=== PATIENT | female | born 1925 | race Caucasian/White ===

== ENCOUNTER 2016-08-17 01:34 | Inpatient (IN) | payer OTHER ==
[~2016-08-17] VITALS: Ht 165.1 cm; Wt 54.4 kg
--- NOTE | ~2016-08-17 | EKG ---
[address] [address] ELECTROCARDIOGRAM REPORT Name: TIP HARDIN Room #: 403-P ADM IN M.R.#: [id number] Admission: 08/17/16 Attend Phys: David Alexandre MD Discharge: Date of : [birth year] Report #: [id number] THIS REPORT FOR: //name// [facility] ED Test Date: 2016-08-17 Test Time: 01:52:09 Pat Name: TIP HARDIN Department: Room: 403 Gender: F [employer]: ZAINAB : 1925 Requested By: Roman Gilbert Order Number: [id number] MD: Mervin Aviles Measurements Intervals [place] Rate: 105 P: 28 CO: 179 QRS: 32 QRSD: 84 T: 55 QT: 321 QTc: 425 Interpretive Statements Sinus tachycardia Ventricular premature complex Electronically Signed On 08-17-2016 9:43:45 CDT by Mervin Aviles [email or web address] <ELECTRONICALLY SIGNED> By: Mervin Aviles MD 08/17/16 0943 [id number] MD CARLIE Alanis
[~2016-08-17 01:34] MED LIST: ADVAIR 100-501 EACH; ALENDRONATE SOD70 MG PO; ALLEGRA30 MG; ALLOPURINOL 10100 M1 PO; BETIMOL10 ML; CIPRO500 M1 PO; ENALAPRIL MALEA20 MG PO; FLEXERIL PO; HYDROCODON-ACE1 EA12 PO; HYDROCODONE-AP1 EA11 PO; K-DUR10 ME1 PO; LASIX 40 MG TAB40 M1 PO; LEVOXYL100 MCG PO; LUMIGAN2.5 M1 PO; MEDROLDOSEPACK PO; MIRAPEX0.125 MG PO; NORCO 5-325 TA1 EACH PO; OMEPRAZOLE20 M2 PO; PREMARIN0.625 MG PO; PROAIR HFA8.5 GM; ZYMAR5 ML
[2016-08-17 01:35] VITALS: BP 126/75
[2016-08-17] MEDS ORDERED: ASPIR 8181 MG PO (01:52)
[2016-08-17] MEDS ORDERED: NEXIUM40 MG PO (01:53)
[2016-08-17] MEDS ORDERED: B12INJ PO (01:53)
[2016-08-17] MEDS ORDERED: CALCIUM + D3 E1 EACH PO (01:54)
[2016-08-17] MEDS ORDERED: APAP500 PO (01:54)
[2016-08-17 01:59] LABS: HEMOGLOBIN 10.6 gm/dL (12.0-15.0); MCHC 33.2 g/dL (28.0-37.0); MCV 84.3 fL (80.0-100.0); RBC 3.8 mil/uL (4.20-5.00); RDW 16.7 % (10.5-14.5); WBC 14.8 thou/uL (4.0-11.0)
[2016-08-17 02:08] LABS: CALCIUM 9.9 mg/dL (8.5-10.1); POTASSIUM 5.4 mmol/L (3.5-5.1)
[2016-08-17 02:12] LABS: ALBUMIN 3.2 g/dL (3.4-5.0); APTT 25.2 Seconds (24.5-32.8); PROTIME 10.7 Seconds (9.3-11.4); TOTAL BILIRUBIN 0.6 mg/dL (<0.1-1.0); TOTAL PROTEIN 6.9 g/dL (6.4-8.2)
[2016-08-17 04:40] VITALS: BP 151/87
[2016-08-17 05:54] VITALS: BP 129/74
[2016-08-17 08:21] VITALS: BP 131/70
[2016-08-17 15:54] VITALS: BP 126/63
[2016-08-17 19:43] VITALS: BP 114/65
== END 2016-08-17 22:27 | disposition short-term general hospital (02) | DRG 534 ==
LOC: ER 01:34 → 4N 03:10 → EROBS 03:10 → 4N 04:40
PROVIDERS: Emergency Medicine
DX: S72.402A Unspecified fracture of lower end of left femur, initial encounter for closed fracture (principal); N17.9 Acute kidney failure, unspecified; Z96.659 Presence of unspecified artificial knee joint; I10 Essential (primary) hypertension; H40.9 Unspecified glaucoma; D53.9 Nutritional anemia, unspecified; M19.90 Unspecified osteoarthritis, unspecified site; F03.90 Unspecified dementia, unspecified severity, without behavioral disturbance, psychotic disturbance, mood disturbance, and anxiety; E86.0 Dehydration; E87.5 Hyperkalemia; D72.829 Elevated white blood cell count, unspecified; Z90.710 Acquired absence of both cervix and uterus; Z85.42 Personal history of malignant neoplasm of other parts of uterus; Z91.041 Radiographic dye allergy status; Z88.8 Allergy status to other drugs, medicaments and biological substances; W18.39XA Other fall on same level, initial encounter; Y93.89 Activity, other specified; Y92.89 Other specified places as the place of occurrence of the external cause; Y99.8 Other external cause status
CPT/HCPCS: 10091